=== PATIENT | male | born 1955 | race Caucasian/White ===

== ENCOUNTER → 2018-08-14 | Outpatient (CLI) | payer MEDICARE ==
--- NOTE | 2018-08-14 09:39 | PCVCIMAG ---
APPROVED REPORT Indications Dizziness and Vertigo Risk Factors Hypertension: TIA/CVA History CAD Doppler Spectral Velocity Analysis PSV / EDVPSV / EDV ECA (R) 55 / 9 cm/sECA (L) 79 / 14 cm/s dICA (R) 51 / 17 cm/sdICA (L) 61 / 26 cm/s Roman (R) 55 / 21 cm/smICA (L) 50 / 22 cm/s pICA (R) 53 / 18 cm/spICA (L) 32 / 12 cm/s Bulb (R) 65 / 16 cm/sBulb (L) 69 / 21 cm/s dCCA (R) 73 / 21 cm/sdCCA (L) 77 / 22 cm/s mCCA (R) 73 / 19 cm/smCCA (L) 86 / 25 cm/s Vert (R) 43 / 13 cm/sVert (L) 44 / 15 cm/s ICA/CCA 0.75ICA/CCA 0.79 Basic Measurements Blood Pressure: Pulses: Right Left RightLeft Brachial(Sitting) 124`/17duGe440/70mmHgTemporal Real Time B-Mode Imaging Vert. (R)AntegradeVert. (L)Antegrade Findings The right carotid bulb has moderate plaque. The right proximal internal carotid artery shows <40% stenosis. The right common carotid artery shows no significant stenosis. The right external carotid artery shows no significant stenosis. The left carotid bulb has moderate heterogeneous plaque. The left proximal internal carotid artery shows <40% stenosis. The left common carotid artery shows no significant stenosis. The left external carotid artery shows no significant stenosis. Conclusion 1. Right internal carotid artey stenosis (<40%) 2. Left internal carotid artery stenosis (<40%) 3. Antegrade vertebral flow
== END | disposition home or self-care (01) ==
LOC: PCVCIMAG 09:02
PROVIDERS: ATTEND Internal Medicine Cardiovascular Disease
DX: I65.23 Occlusion and stenosis of bilateral carotid arteries (principal); I25.10 Atherosclerotic heart disease of native coronary artery without angina pectoris; R42 Dizziness and giddiness; I10 Essential (primary) hypertension; Z86.73 Personal history of transient ischemic attack (TIA), and cerebral infarction without residual deficits
CPT/HCPCS: 93880